=== PATIENT | male | born 1990 | race American Indian/Alaskan Native ===

== ENCOUNTER 2019-02-10 12:41 | Emergency (ER) | payer OTHER ==
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
--- NOTE | 2019-02-10 15:09 | XRay Report ---
LEFT SHOULDER: History: Left shoulder pain. Routine views demonstrate normal bony and soft tissue structures with normal joint alignment of the shoulder. IMPRESSION: Normal study.
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
[2019-02-11 19:02] VITALS: BP 111/69
== END 2019-02-10 15:47 | disposition home or self-care (01) ==
LOC: ED 12:41
DX: S40.012A Contusion of left shoulder, initial encounter (principal); S20.229A Contusion of unspecified back wall of thorax, initial encounter; V49.9XXA Car occupant (driver) (passenger) injured in unspecified traffic accident, initial encounter; Y93.89 Activity, other specified; Y92.410 Unspecified street and highway as the place of occurrence of the external cause; Y99.8 Other external cause status
CPT/HCPCS: 99283